=== PATIENT | female | born 1995 | race Caucasian/White ===

== ENCOUNTER 2017-06-28 09:51 | Day surgery (SDC) | payer OTHER ==
[~2017-06-28] VITALS: Ht 165.1 cm; Wt 69.4 kg
[~2017-06-28 09:51] MED LIST: MULTCAP8 PO
[2017-06-28] MEDS ORDERED: FLUMAZENIL 0.5 MG/5 ML VIAL ONE (09:52)
[2017-06-28] MEDS ORDERED: LR 1,000 ML IV ONE (10:00)
[2017-06-28 10:41] LABS: MEAN CORPUSCULAR HEMOGLOBIN 27.8 pg (27.0-33.0); MEAN CORPUSCULAR HGB CONC 32.8 g/dl (32.0-36.5); MEAN CORPUSCULAR VOLUME 84.7 fl (80.0-96.0); PLATELET COUNT, AUTOMATED 214 10^3/uL (150-450); RED CELL DISTRIBUTION WIDTH 13.2 % (11.5-14.5); WHITE BLOOD COUNT 4.6 10^3/uL (4.0-10.0)
[2017-06-28] MEDS ORDERED: DOXYCYCLINE HYCLATE 100 MG TAB PO ONE (11:00)
[2017-06-28] MEDS ORDERED: LIDOCAINE 1% MDV 20ML VIAL SC ONE (11:00)
[2017-06-28] MEDS ORDERED: fentaNYL 100 MCG/2 ML INJECTION (J3010) As Ordered ONE (12:07)
[2017-06-28] MEDS ORDERED: MIDAZOLAM INJ 2 MG/2 ML VIAL (J2250) As Ordered ONE ×2 (12:07→14:08)
[2017-06-28] MEDS ORDERED: SILVER NITRATE APPLICATOR As Ordered ONE (12:17)
[2017-06-28] MEDS ORDERED: LIDOCAINE 1% SDV INJ 30 ML VIAL As Ordered ONE (12:17)
[2017-06-28] MEDS ORDERED: RHOGAM 300 MCG (1500 IU) INJ (J2790) IM ONE (12:45)
[2017-06-28] MEDS ORDERED: KETOROLAC 60 MG/2 ML VIAL (J1885) As Ordered ONE (13:04)
[2017-06-28] MEDS ORDERED: PROPOFOL 200 MG/20 ML VIAL As Ordered ONE (13:04)
[2017-06-28] MEDS ORDERED: ONDANSETRON 4MG/2ML VIAL (J2405) As Ordered ONE (13:04)
[2017-06-28] MEDS ORDERED: LIDOCAINE 2% INJ 100 MG/5 ML SDV (FOR ANES.) As Ordered ONE (13:04)
[2017-06-28] MEDS ORDERED: dexameTHASONE 4 MG/ML 1ML VIAL (J1100) As Ordered ONE (13:04)
[2017-06-28] MEDS ORDERED: diphenhydrAMINE INJ 50MG/ML VIAL (J1200) As Ordered ONE (14:14)
[2017-06-28] MEDS ORDERED: diphenhydrAMINE INJ 50MG/ML VIAL (J1200) IV PRN (14:45)
[2017-06-28] MEDS ORDERED: PERCOCET 5MG/325MG TAB As Ordered ONE (15:03)
[2017-06-28] MEDS ORDERED: LR 1,000 ML IV SCH (15:15)
[2017-06-28] MEDS ORDERED: PERCOCET 5MG/325MG TAB PO PRN (15:15)
[2017-06-28] MEDS ORDERED: ONDANSETRON 4MG/2ML VIAL (J2405) IV PRN (15:15)
[2017-06-28 16:23] VITALS: BP 114/62
--- NOTE | 2017-06-28 18:05 | RO ---
DATE OF PROCEDURE: 06/28/2017 PREPROCEDURE DIAGNOSIS: Missed . POSTPROCEDURE DIAGNOSIS: Missed . PROCEDURE: Suction, dilation and curettage. SURGEON: Yue Harvey MD PRESCHOOL TEACHER'S ASSISTANT: Logan Ward MD ANESTHESIA: MAC with lidocaine injection. CLINICAL SERVICE: Gynecology. INDICATION FOR OPERATION: Addis is a 22-year-old 2, now para 0-0-2-0 with a missed that was treated with 800 mcg of Cytotec times two, 24 hours apart with no passage of tissue and only some moderate bleeding noted. Repeat transvaginal ultrasound in the clinic revealed gestational sac still present, though yolk sac and pole were difficult to distinguish and the gestational sac measured 44.9 mm. The patient was counseled again in the clinic and desired active management with a dilation and curettage. Her hCG quantitative had decreased on 06/19/2017 from 96,000 to 73,000 on 06/24/2017. She was A negative blood type and RhoGAM was prepared for her. MATERIAL FORWARDED TO THE LAB FOR EXAMINATION: Products of conception. DESCRIPTION OF FINDINGS: 8 week size anteverted uterus, cervical os closed. No adnexal masses palpable. Moderate amount of blood and tissue extracted from the uterus. INFECTION CLASSIFICATION: 2. ESTIMATED BLOOD LOSS: 20 mL. IV FLUID: 700 mL lactated Ringer's. URINE OUTPUT: Not measured. DESCRIPTION OF PROCEDURE: After obtaining informed consent, Addis was taken to the operating room where she underwent MAC anesthesia. She was placed in low lithotomy position and the perineum and vagina were prepped and draped in a sterile fashion. She had received 100 mg of oral doxycycline prior to the procedure, and she will be given 200 mg of doxycycline after the procedure. Chester speculum was inserted and 7 mL of 1% lidocaine were injected in four quadrants to achieve a cervical block. The anterior segment of the cervix was grasped with a single tooth tenaculum. Cervix was sequentially dilated using Hanks dilators. A 9 mm suction curette was introduced to the fundus and suction was activated. Approximately eight passes of suction curettage were used to remove intrauterine contents. A sharp curette was used as well and a good cry was noted in 360 degrees. Two final passes with the suction curette ensured removal of all intrauterine contents. Hemostasis was noted after procedure. The tenaculum was removed with hemostasis at the tenaculum site noted. Chester speculum was removed and all counts were correct times two. The patient was transferred to the recovery room in good condition. She received her RhoGAM for her negative blood type.
== END 2017-06-28 16:35 | disposition home or self-care (01) ==
LOC: M SDC 09:51
PROVIDERS: ATTEND Student in an Organized Health Care Education/Training Program
DX: O02.1 Missed abortion (principal)
CPT/HCPCS: 36415; 59820; 85027; 86850; 86900; 86901; 88305; J1100; J1200; J1885; J2250; J2405; J2790; J3010

== ENCOUNTER → 2022-09-20 | Outpatient (REF) ==
[2022-09-20 13:36] LABS: RSV AMPLIFICATION NEGATIVE (NEGATIVE)
== END ==
LOC: M LABSMTC 11:11
PROVIDERS: ATTEND Family Medicine
DX: Z11.59 Encounter for screening for other viral diseases (principal)

== ENCOUNTER → 2023-07-02 | Outpatient (REF) | LOC: M EMP 11:11 | PROVIDERS: ATTEND Family Medicine | DX: Z11.52 Encounter for screening for COVID-19 (principal) ==